=== PATIENT | female | born 2000 | race Caucasian/White ===

== ENCOUNTER 2020-02-10 17:43 | Emergency (ER) | payer MEDICAID ==
[~2020-02-10] VITALS: Ht 162.6 cm; Wt 78.0 kg
--- NOTE | 2020-02-10 17:45 | NUR ---
BIBA TAKEN TO BED 4
[2020-02-10 17:52] VITALS: BP 100/57
--- NOTE | 2020-02-10 17:55 | NUR ---
PT BIBA S/P SEIZURE. FAMILY WITNESSED SEIZURE AND REPORTED IT TONIC CLONIC LASTING 7 MINUTES. PER BRICKLAYER HELPER ORAL TRAUMA WAS NOTED BY FAMILY MEMBER, BUT NO ACTIVE BLEEDING OR LACERATION NOTICED UPON ASSESSMENT IN MOUTH OR ON LIPS. PATIENT STATES PAIN OF 0/10 AT THIS TIME; VSS; A&OX2; PATIENT POSITIONED FOR COMFORT; HOB ELEVATED; BEDRAILS UP X2; BED DOWN. ER MD MADE AWARE OF PT STATUS. SEIZURE PADS PLACED ON TWO SIDES OF THE BED. PT IS ON MONITOR AND RESTING IN THE BED.
--- NOTE | 2020-02-10 17:56 | NUR ---
PER EMS MOTHERS CONTACT INFORMATION IS , ROHAN BAPTISTE.
--- NOTE | 2020-02-10 18:15 | NUR ---
BLOOD SEEN ON PT'S UNDERWEAR AND PANTT. PATIENT URINATED VIA BEDPAN. URINE OUTPUT APPROXIMATELY 5ML WITH BLOODY COLOR. CHANGED A NEW UNDERWEAR WITH PAD ON PATIENT.
[2020-02-10 18:17] LABS: BASOPHILS % (AUTO) 0.3 % (0.0-2.0); EOSINOPHILS % (AUTO) 0.5 % (0.0-4.0); HEMOGLOBIN 13.6 g/dL (12.0-16.0); LYMPHOCYTES # (AUTO) 1.7 K/uL (2.5-16.5); LYMPHOCYTES % (AUTO) 20.4 % (20.5-51.1); MEAN CORPUSCULAR HEMOGLOBIN 29 pg (27-31); MEAN CORPUSCULAR HGB CONC 33 g/dL (33-37); MEAN CORPUSCULAR VOLUME 88.7 fL (80-94); MONOCYTES # (AUTO) 0.5 K/uL (0.8-1.0); MONOCYTES % (AUTO) 6.6 % (1.7-9.3); NEUTROPHILS # (AUTO) 5.9 K/uL (1.8-7.7); NEUTROPHILS % (AUTO) 72.2 % (42.2-75.2); PLATELET COUNT (AUTO) 271 K/uL (140-450); RED BLOOD CELL COUNT(AUTO) 4.74 MIL/uL (4.20-5.40); RED CELL DISTRIBUTION WIDTH 13.7 % (11.6-13.7); WHITE BLOOD COUNT (AUTO) 8.2 K/uL (4.8-10.8)
--- NOTE | 2020-02-10 18:36 | NUR ---
SPOKE WITH PATIENT'S GRANDMOTHER SHAMA ROSS IN PERSON AND GAVE HER PT'S UPDATES OF CONDITION. Addendum: 02/10/20 at 1838 by ANJU GRANDMOTHER REPORTED PT HAD LAST SEIZURE ONE MONTH AGO AND SHE IS NOT ABLE TO IDENTYFY ANY TRAIGGER FOR TODAY'S SEIZURE.
[2020-02-10 18:41] LABS: ALBUMIN 3.4 g/dL (3.4-5.0); ANION GAP 18.9 (8-16); CARBON DIOXIDE 21.7 mmol/L (21-32); POTASSIUM 3.6 mmol/L (3.5-5.1); TOTAL BILIRUBIN 0.4 mg/dL (0.0-1.0)
--- NOTE | 2020-02-10 18:58 | NUR ---
DR. CLARKE IS RE-EVALUATING PATIENT AT BEDSIDE.
--- NOTE | 2020-02-10 19:16 | NUR ---
Pt report given to RADHA Eldridge. Transfer of care at this time.
--- NOTE | 2020-02-10 19:16 | NUR ---
RECIVED REPORT FROM LYNN GARCIA. CONTINUATION OF CARE.
[2020-02-10 19:18] LABS: BILIRUBIN,URINE 1+ (NEGATIVE); BLOOD, URINE 3+ (NEGATIVE); LEUKOCYTE ESTERASE ,URINE 1+ (NEGATIVE); NITRITE, URINE NEGATIVE (NEGATIVE); UGLUCOSE NEGATIVE (NEGATIVE)
--- NOTE | 2020-02-10 19:18 | NUR ---
PT RESPONSIVE TO VERBAL STIMULI. PT AAO X4. RESPIRATIONS AR EEVEN AND UNALBORED. PADDED SIDE RAILS IN PLACE. PT ON MONITOR. VSS.
[2020-02-10 19:22] LABS: APPEARANCE,URINE HAZY (CLEAR); COLOR,URINE BLOODY (YELLOW)
--- NOTE | 2020-02-10 20:06 | NUR ---
PT ABLE TO AMBULATE TO RESTROOM WITH STEADY GAIT. PT ASSITIED IN WALKING TO RESTROOM. PT ORIENTED TO CALL LIGHT IN CASE OF NEEDED ASSISTANCE.
--- NOTE | 2020-02-10 20:59 | NUR ---
PT MOTHER CALLED FOR AN UPDATE. PT GAVE PERMISSON TO GIVE AN UPDATE ON HER CONDITION. MOTHER STATED SHE WILL FOLLOW UP AND CALL LATER.
--- NOTE | 2020-02-10 21:36 | NUR ---
Note tylor in EDM - 02/10/20 at 2202 by [facility] Patient discharged with v/s stable. Written and verbal after care instructions given and explained. Patient verbalized understanding. Ambulatory with steady gait. All questions addressed prior to discharge. Advised to follow up with PMD. PTS MOM WILL BE PICKING HER UP.
[2020-02-10] MEDS ORDERED: LORazepam 2 MG/ML VIAL ONE (21:57)
[2020-02-10] MEDS ORDERED: LORazepam 2 MG/ML VIAL IVP ONE (22:00)
--- NOTE | 2020-02-10 22:03 | NUR ---
UPON DISCHARGE PT EYES WERE CONVULSING. DR. ARAYA MADE AWARE AND TO BE RETURNED TO BED 4 FOR FURTHER ASSESSMENT, AND MONITORING.
--- NOTE | 2020-02-10 22:05 | NUR ---
IV PLACED IN L AC 20G BY MAR GARCIA. IV SITE IS PATENT, NO SWELLING OR C/O PAIN AT SITE.
--- NOTE | 2020-02-10 22:06 | NUR ---
ATIVAN 1MG GIVEN IVP. IV SITE IS PATENT. PT TOLERATED ON MONITOR. VSS.
[2020-02-10] MEDS ORDERED: DEXT 5% / NACL 0.45% 1,000 ML IV SCH (22:41)
--- NOTE | 2020-02-10 22:42 | NUR ---
MOTHER CALLED AND NOTIFIED ABOUT PT PENDING ADMISSION.
[2020-02-10] MEDS ORDERED: LORazepam 2 MG/ML VIAL IM/IVP PRN (22:45)
[2020-02-10] MEDS ORDERED: ONDANSETRON 4 MG/2 ML VIAL IM/IVP PRN (22:45)
[2020-02-10] MEDS ORDERED: ZOLPIDEM 5 MG TAB PO PRN (22:45)
[2020-02-10] MEDS ORDERED: ACETAMINOPHEN 325 MG TAB PO PRN (22:45)
[2020-02-10] MEDS ORDERED: MORPHINE SULFATE 2 MG/ML SYR IVP PRN (22:45)
[2020-02-10] MEDS ORDERED: DOCUSATE SODIUM 100 MG GELCAP PO PRN (22:45)
[2020-02-10] MEDS ORDERED: HYDROcodone/APAP 5/325 MG 1 TAB TAB PO PRN (22:45)
--- NOTE | 2020-02-10 22:55 | NUR ---
XRAY AT BEDSIDE.
[2020-02-10] MEDS ORDERED: [UNRECOGNIZED DRUG - CODE] PO (23:11)
--- NOTE | 2020-02-10 23:18 | NUR ---
PER ERMD PT STABLE ENOUGH TO BE D/C HOME. PT AAOX4. VSS. PT ABLE TO AMBULATE WITH STEADY GAIT WITHOUT ASSISTANCE. NO SIEZURE ACTIVITY NOTED.
--- NOTE | 2020-02-10 23:24 | NUR ---
PT MOTHER CALLED TO COOLING ROOM ATTENDANT PT.
--- NOTE | 2020-02-10 23:24 | NUR ---
IV removed, catheter intact and site benign. Applied folded 4x4 gauze and tape to stop bleeding.
[2020-02-10 23:25] VITALS: BP 106/73
--- NOTE | 2020-02-10 23:25 | NUR ---
Patient discharged with v/s stable. Written and verbal after care instructions given and explained. Patient verbalized understanding. Ambulatory with steady gait. All questions addressed prior to discharge. Advised to follow up with PMD.
[2020-02-11 00:24] LABS: PROTHROMBIN TIME 9.9 secs (10.8-13.4)
[2020-02-11 01:24] LABS: AMYLASE 56 U/L (25-115); LIPASE 45 U/L (73-393); MAGNESIUM 1.6 mg/dL (1.8-2.4); PHOSPHORUS 2.8 mg/dL (2.5-4.9)
[2020-02-12 08:06] LABS: T4 (THYROXINE) 7.1 ug/dL (4.5-12.0)
== END 2020-02-10 23:25 | disposition home or self-care (01) ==
LOC: MED 17:43
DX: R56.9 Unspecified convulsions (principal)
CPT/HCPCS: 36415; 71045; 80053; 81001; 81025; 82140; 82150; 82550; 82553; 83036; 83690; 83735; 83880; 84100; 84134; 84436; 84484; 85025; 85610; 85730; 87086; 96374; 99284; G0482; J2060; 84443

== ENCOUNTER 2020-03-01 14:07 | Inpatient (IN) | payer MEDICAID, SELFPAY ==
[~2020-03-01] VITALS: Ht 160 cm; Wt 76.2 kg
[~2020-03-01 14:07] MED LIST: [UNRECOGNIZED DRUG - CODE] PO
[2020-03-01 14:12] VITALS: BP 117/75
[2020-03-01] MEDS ORDERED: ACETAMINOPHEN EXTRA STRENGTH 500 MG TAB PO ONE (14:15)
--- NOTE | 2020-03-01 14:25 | NUR ---
19/F C/O FEVER AND DIZZINESS X THIS AM. DENIES N/V. STATES SORE THROAT. DENIES COUGH AND SOB. DENIES SICK CONTACTS BUT STATES HAS BEEN OUTSIDE/NOT STAYING AT HOME. STATES HIGH PAIN THAT STARTED A FEW HOURS AGO. PT APPEARS FATIGUED. AMBULATED FROM TRIAGE TO BED 09. TEMP 102.1 HR 137 AT TRIAGE. PMH- SEIZURE
--- NOTE | 2020-03-01 14:30 | NUR ---
ORDERED TYLENOL ADMINISTERED. PT DENIES USE OF ANTIPYRETIC TODAY PRIOR TO ER VISIT.
--- NOTE | 2020-03-01 14:36 | NUR ---
DR. PUCKETT EVALUATING PT AT BEDSIDE
[2020-03-01] MEDS ORDERED: NACL 0.9% 1,000 ML IV ONE ×3 (14:40→16:10)
--- NOTE | 2020-03-01 14:51 | NUR ---
ASSISTED PT TO BEDSIDE COMMODE TO PROVIDE URINE SAMPLE
--- NOTE | 2020-03-01 15:09 | NUR ---
BLOOD AND URINE SAMPLES HANDED TO TRAIN CLERK
--- NOTE | 2020-03-01 15:14 | NUR ---
FLU AND COVID SWABS OBTAINED VIA FRUIT OR NUT GROWER
--- NOTE | 2020-03-01 15:23 | NUR ---
FLU AND COVID SWABS HANDED TO LIFE SKILLS INSTRUCTOR.
[2020-03-01 15:33] LABS: BASOPHILS % (AUTO) 0.2 % (0.0-2.0); EOSINOPHILS % (AUTO) 0.1 % (0.0-4.0); HEMATOCRIT 40.9 % (36-48); HEMOGLOBIN 13.5 g/dL (12.0-16.0); LYMPHOCYTES # (AUTO) 1.1 K/uL (2.5-16.5); MEAN CORPUSCULAR HEMOGLOBIN 29 pg (27-31); MEAN CORPUSCULAR HGB CONC 33 g/dL (33-37); MEAN CORPUSCULAR VOLUME 88.5 fL (80-94); MONOCYTES % (AUTO) 7.5 % (1.7-9.3); NEUTROPHILS # (AUTO) 11.6 K/uL (1.8-7.7); NEUTROPHILS % (AUTO) 84.2 % (42.2-75.2); PLATELET COUNT (AUTO) 224 K/uL (140-450); RED BLOOD CELL COUNT(AUTO) 4.63 MIL/uL (4.20-5.40); RED CELL DISTRIBUTION WIDTH 14.5 % (11.6-13.7); WHITE BLOOD COUNT (AUTO) 13.8 K/uL (4.8-10.8)
[2020-03-01 15:34] LABS: APPEARANCE,URINE CLEAR (CLEAR); BILIRUBIN,URINE NEGATIVE (NEGATIVE); BLOOD, URINE NEGATIVE (NEGATIVE); COLOR,URINE YELLOW (YELLOW); LEUKOCYTE ESTERASE ,URINE NEGATIVE (NEGATIVE); NITRITE, URINE NEGATIVE (NEGATIVE); PH,URINE 8.5 (5.0-9.0); UGLUCOSE NEGATIVE (NEGATIVE)
--- NOTE | 2020-03-01 15:46 | NUR ---
NOTIFIED DR. PUCKETT OF PT BP 90/40 AND RECHECKED WITH 82/40 RESULT. PT FATIGUED BUT REMAINS AOX4.
[2020-03-01 15:48] LABS: ALBUMIN 3.7 g/dL (3.4-5.0); ANION GAP 15.1 (8-16); CARBON DIOXIDE 24.4 mmol/L (21-32); CREATININE 0.8 mg/dL (0.6-1.3); POTASSIUM 3.5 mmol/L (3.5-5.1); TOTAL BILIRUBIN 0.8 mg/dL (0.0-1.0)
[2020-03-01] MEDS ORDERED: OSELTAMIVIR PHOSPHATE 75 MG CAP PO ONE (15:50)
[2020-03-01 16:04] LABS: PROTHROMBIN TIME 9.8 secs (10.8-13.4)
--- NOTE | 2020-03-01 16:33 | NUR ---
BP IMPROVED TO 95/50, DR. PUCKETT IS AWARE.
--- NOTE | 2020-03-01 17:04 | NUR ---
PT AMB TO BEDSIDE COMMODE WITHOUT ASSISTANCE. STATES FEELS "LIGHTHEADED" BUT IMPROVED SINCE TIME OF TRIAGE.
[2020-03-01] MEDS ORDERED: ACETAMINOPHEN 325 MG TAB PO PRN (17:30)
[2020-03-01] MEDS ORDERED: ONDANSETRON 4 MG/2 ML VIAL IM/IVP PRN (17:30)
[2020-03-01] MEDS ORDERED: HYDROcodone/APAP 5/325 MG 1 TAB TAB PO PRN (17:30)
[2020-03-01] MEDS ORDERED: LORazepam 2 MG/ML VIAL IM/IVP PRN ×2 (17:30→19:55)
[2020-03-01] MEDS ORDERED: DOCUSATE SODIUM 100 MG GELCAP PO PRN (17:30)
[2020-03-01 18:04] LABS: AMYLASE 59 U/L (25-115); FREE T4 (FREE THYROXINE) 1.02 ng/dL (0.76-1.46); HDL CHOLESTEROL 67 mg/dL (40-60); LDL (CALC) 62 mg/dL (60-100); LIPASE 53 U/L (73-393); MAGNESIUM 1.5 mg/dL (1.8-2.4); PHOSPHORUS 2.8 mg/dL (2.5-4.9); TRIGLYCERIDES 36 mg/dL (30-150)
[2020-03-01 18:04] LABS: BARBITURATE, URINE NEGATIVE ng/ml (NEG <=200); BENZODIAZEPINE, URINE NEGATIVE ng/mL (NEG <=200); CANNABINOID, URINE NEGATIVE ng/mL (NEG <=50); COCAINE, URINE NEGATIVE ng/mL (NEG <=300); OPIATE, URINE NEGATIVE ng/mL (NEG <=2000); PHENCYCLIDINE SCREEN,URINE NEGATIVE ng/mL (NEG <=25)
[2020-03-01 18:26] LABS: THYROID STIMULATING HORMONE 1.31 uIU/mL (0.34-3.74)
--- NOTE | 2020-03-01 18:50 | NUR ---
Patient will be admitted to care of DR. HOANG. Admited to TELE. Will go to room 127A. Belongings list completed. Report to NEGRA GARCIA.
--- NOTE | 2020-03-01 18:50 | NUR ---
RECEIVED REPORT FROM ER NURSE FOR CONTINUITY OF CARE, PT IS STABLE, AAXO4, PT IS NOT SPEAKING MUCH HER THROAT HURTS, PT HAS RIGHT AC 18 SALINE LOCK, LEFT AC 20G INFUSING NORMAL SALINE AT 110 ML/HR, INTRODUCE PT TO THE ROOM, EDUCATED PT ON USE OF PHONE AND CALL LIGHT, PT VERBALIZED UNDERSTANDING, SEIZURE PRECAUTIONS ARE IN PLACE, MRSA SWAB TAKEN, CALL LIGHT WITHIN REACH, ALL NEEDS MET AT THIS TIME.
[2020-03-01 19:00] VITALS: BP 111/64
[2020-03-01] MEDS: NACL 0.9% 1,000 ML IV SCH (19:09)
--- NOTE | 2020-03-01 19:20 | NUR ---
GAVE REPORT TO NIGHT FOR CONTINUITY OF CARE, PT STABLE.
--- NOTE | 2020-03-01 20:00 | NUR ---
RECEIVED BEDSIDE REPORT FROM AM SHIFT RN FOR PT'S CONTINUITY OF CARE. PT IS AAOX4, AMBULATORY, ON ISOLATION FOR R/O COVID19, ON REMOTE CONTROL MIRROR INSTALLER, PT ON ROOM AIR, HAS RIGHT AC 18G SALINE LOCK AND LEFT AC 20G INFUSING WITH NS AT 110ML/HR, SKIN IS INTACT, PT DENIES ANY PAIN AT THIS TIME, STATES TOLERABLE SORE THROAT, REQUESTED AND PROVIDED WITH WARM WATER. ADMISSION ASSESSMENT AND QUESTIONNAIRE DONE, EXPLAINED TO PT THE SR. SOCIAL MEDIA & MOBILE MANAGER ROUTINE, PT VERBALIZED UNDERSTANDING. SAFETY MEASURES AND ISOLATION PRECAUTION IN PLACE, AND CALL LIGHT IS WITHIN REACH. WILL MONITOR PT THROUGHOUT SHIFT.
[2020-03-01] MEDS ORDERED: ETHOSUXIMIDE PO SCH (21:00)
[2020-03-01] MEDS ORDERED: MAG SULF 2000 MG/WATER PREMIX 50 ML IV SCH (21:10)
[2020-03-01] MEDS ORDERED: cefTRIAXone 1,000 MG VIAL ONE (22:22)
--- NOTE | 2020-03-01 22:30 | NUR ---
ADMINISTERED SCHEDULED IV ABX ORDERED. PT EDUCATION GIVEN. PT STATED HAS HX: SEIZURES, TAKES MEDICATION 2X/DAY, MD AWARE AWAITING FOR PHARMACY TO DISPENSE. PER MD, WE COULD ADMIN HOME MED FOR TONIGHT IF SOMEONE COULD DROP OFF HOME MED. PT NOTIFIED, PT'S MOTHER TO DROP OFF MEDICATION. PT TOLERATED ABX WELL, NO REACTION NOTED OR OBSERVED. WILL CONTINUE TO MONITOR.
[2020-03-02] VITALS: BP 104/52
--- NOTE | 2020-03-02 00:15 | NUR ---
PT'S MOTHER DROPPED OFF SEIZURE MEDICATION, ADMINISTERED 250MG (1 CAPSULE) DIRECTED, MD AWARE. PT DENIES ANY PAIN OR DISCOMFORT. PT AFEBRILE, NO RESPIRATORY DISTRESS NOTED, ST ON TELE. WILL CONTINUE TO MONITOR PT.
--- NOTE | 2020-03-02 02:15 | NUR ---
PT ASLEEP WITH NO SIGNS OF DISTRESS. WILL CONTINUE TO MONITOR.
[2020-03-02 04:00] VITALS: BP 110/55
--- NOTE | 2020-03-02 04:30 | NUR ---
VS CHECKED AND CHARTED. PT C/O SORE THROAT, REQUESTED FOR MEDICATION. NOTIFIED MD, WILL WAIT FOR FURTHER ORDERS, PT NOTIFIED. OBTAINED PT'S SIGNATURE FOR SEIZURE HOME MEDICATION PHARMACY BAG, EXPLAINED TO PT THAT HOME MED WILL BE KEPT WITH PHARMACY UNTIL DISCHARGE DATE, PHARMACY TO DISPENSE SEIZURE MEDICATION DURING HOSPITALIZATION. PT VERBALIZED UNDERSTANDING. PT MADE COMFORTABLE, WILL MEDICATE FOR SORE THROAT ONCE AVAILABLE.
[2020-03-02] MEDS: BENZOCAINE/MENTHOL 1 LOZ MM PRN ×3 (06:03→22:26)
--- NOTE | 2020-03-02 06:03 | NUR ---
ADMINISTERED PO LOZENGE ORDERED. PT TEACHING GIVEN, PT VERBALIZED UNDERSTANDING. DENIES ANY OTHER PAIN OR DISCOMFORT. WILL ENDORSE PT TO AM SHIFT RN FOR PT'S CONTINUITY OF CARE.
[2020-03-02 06:18] LABS: BASOPHILS % (AUTO) 0.1 % (0.0-2.0); EOSINOPHILS % (AUTO) 0.1 % (0.0-4.0); HEMATOCRIT 37.4 % (36-48); HEMOGLOBIN 12.2 g/dL (12.0-16.0); LYMPHOCYTES # (AUTO) 1.3 K/uL (2.5-16.5); LYMPHOCYTES % (AUTO) 10.2 % (20.5-51.1); MEAN CORPUSCULAR HEMOGLOBIN 29 pg (27-31); MEAN CORPUSCULAR HGB CONC 33 g/dL (33-37); MEAN CORPUSCULAR VOLUME 88.5 fL (80-94); MONOCYTES % (AUTO) 7.6 % (1.7-9.3); NEUTROPHILS # (AUTO) 10.7 K/uL (1.8-7.7); PLATELET COUNT (AUTO) 189 K/uL (140-450); RED BLOOD CELL COUNT(AUTO) 4.22 MIL/uL (4.20-5.40); RED CELL DISTRIBUTION WIDTH 14.7 % (11.6-13.7); WHITE BLOOD COUNT (AUTO) 13.1 K/uL (4.8-10.8)
[2020-03-02] MEDS: NACL 0.9% 1,000 ML IV SCH ×2 (06:24→22:41)
--- NOTE | 2020-03-02 07:10 | NUR ---
RECEIVED PATIENT FROM TRADE MARK EXAMINER NURSE FOR CONTINUITY OF CARE. PATIENT IS ASLEEP AT THIS TIME. NO SIGNS OF DISTRESS NOTED. RESPIRATIONS EVEN AND UNLABORED, ROOM AIR. VISIBLE CHEST RISE AND FALL NOTED. ON TELE MONITORING. SKIN WARM, DRY, AND INTACT. IV ON L AC G20, RUNNING NS AT 70 ML/HR. RIGHT AC G18, SALINE LOCK. ABDOMEN SOFT AND NONTENDER. LAST BM WAS February. PATIENT IS CONTINENT. ON DROPLET AND CONTACT PRECAUTIONS. SZ PRECAUTION IN PLACE. PATIENT IS AMBULATORY. BED IN LOW POSITION. CALL LIGHT IS WITHIN REACH. WILL CONTINUE TO MONITOR.
--- NOTE | 2020-03-02 07:52 | NUR ---
PATIENT HAS BEEN SCREENED AND CATEGORIZED LOW NUTRITION RISK. PATIENT WILL BE SEEN WITHIN 7 DAYS OF ADMISSION. 03/08/[address]
[2020-03-02 08:00] VITALS: BP 109/50
[2020-03-02] MEDS: AZITHROMYCIN 250 MG TAB PO SCH (08:19)
[2020-03-02] MEDS: ZINC SULF 220 MG CAP PO SCH (08:19)
[2020-03-02] MEDS: ASCORBIC ACID 500 MG TAB PO SCH (08:20)
[2020-03-02] MEDS: OSELTAMIVIR PHOSPHATE 75 MG CAP PO SCH ×2 (08:21→22:25)
[2020-03-02] MEDS: VITAMIN D 400 IU TAB PO SCH (08:21)
--- NOTE | 2020-03-02 08:21 | NUR ---
GIVEN MORNING MEDICATIONS SCHEDULED. EXPLAINED MEDICATIONS. PATIENT VERBALIZED UNDERSTANDING. PATIENT TOLERATED WELL. WILL CONTINUE TO MONITOR.
[2020-03-02] MEDS ORDERED: ENOXAPARIN 40 MG/0.4 ML SYR SUBQ SCH (09:00)
--- NOTE | 2020-03-02 10:26 | NUR ---
PT IS LYING IN BED. NO SIGN OF DISTRESS NOTED. PT IS WATCHING TV. BED IN LOWEST LOCKED POSITION. WILL CONTINUE TO MONITOR.
--- NOTE | 2020-03-02 10:44 | NUR ---
CALLED PATIENT'S MOTHER X2 TO VERIFY DOSAGE OF ZARONTIN, NO ANSWER. WILL TRY TO CALL BACK AGAIN LATER
--- NOTE | 2020-03-02 10:48 | NUR ---
PER PATIENT, SHE IS ONLY TAKING ONE CAPSULE OF ETHOSUZIMIDE TID. NOTIFIED DR. JO REGARDING PATIENT'S ETHOSUZIMIDE DOSAGE OF 250MG TID. DR STATED SHE WILL CHANGE IT. PHARMACY AWARE.
[2020-03-02 10:57] LABS: ANION GAP 15.4 (8-16); CREATININE 0.8 mg/dL (0.6-1.3); POTASSIUM 3.4 mmol/L (3.5-5.1)
--- NOTE | 2020-03-02 11:00 | NUR ---
PER PATIENT'S MOTHER, ETHOSUZIMIDE IS TAKEN ONE 250 MG IN THE MORNING, TWO CAPSULES AT NIGHT, 500 MG PO. PHARMACY IS AWARE
[2020-03-02 11:02] LABS: MAGNESIUM 1.6 mg/dL (1.8-2.4); PHOSPHORUS 3.1 mg/dL (2.5-4.9)
[2020-03-02 12:00] VITALS: BP 109/86
--- NOTE | 2020-03-02 12:03 | NUR ---
GIVEN CEPHACOL FOR SORE THROAT PO. VITAL CHECKED. ALL WITHIN THE NORMAL LIMITS. AFEBRILE. DENIES PAIN OTHER THAN SORE THROAT. BED IN LOW POSITION. CALL LIGHT IS WITHIN REACH. WILL CONTINUE TO MONITOR.
[2020-03-02] MEDS ORDERED: MAG SULF 2000 MG/WATER PREMIX 100 ML IV SCH (14:15)
--- NOTE | 2020-03-02 14:41 | NUR ---
MAG-RIDER GIVEN VIA IVF FOR MAG LEVEL OF 1.6. KDUR PO FOR POTASSIUM LEVEL OF 3.4. EXPLAINED MEDICATIONS. PATIENT VERBALIZED UNDERSTANDING. BED IN LOW POSITION CALL LIGHT IS WITHIN REACH. WILL CONTINUE TO MONITOR.
--- NOTE | 2020-03-02 14:46 | NUR ---
PATIENT STATED THAT HER IV MAG-RIDER IS HURTING HER. LOWERED MAG RIDER RATE TO 15 ML/HR. TOLD PATIENT TO CALL ME IF IT IS STILL HURTING. PATIENT STATED UNDERSTANDING. DR. JO AWARE.
[2020-03-02] MEDS ORDERED: POTASSIUM CHLORIDE 10 MEQ TABER PO SCH (15:00)
[2020-03-02 16:00] VITALS: BP 109/57
--- NOTE | 2020-03-02 16:37 | NUR ---
PATIENT IS ON THE PHONE TEXTING. NO SIGNS OF DISTRESS NOTED. BED IN LOW POSITION CALL LIGHT IS WITHIN REACH. WILL CONTINUE TO MONITOR.
--- NOTE | 2020-03-02 18:16 | NUR ---
PATIENT IS EATING DINNER AT THIS TIME. NO SIGNS OF DISTRESS NOTED. WILL CONTINUE TO MONITOR.
--- NOTE | 2020-03-02 19:10 | NUR ---
ENDORSE PT TO THE SNOW RANGER NURSE FOR CONTINUITY OF CARE. PT IS IN STABLE CONDITION.
--- NOTE | 2020-03-02 19:15 | NUR ---
RECEIVED REPORT FORM SCOTT RN DAYSHIFT NURSE AT BEDSIDE FOR CONTINUITY OF CARE, PT IN STABLE CONDITION.
[2020-03-02 20:00] VITALS: BP 120/60
--- NOTE | 2020-03-02 20:00 | NUR ---
PT IN BED V/S FOLLOWS: T 98.1 P 71 R 20 B/P 118/62 02 99% ON ROOM AIR. PT IS AOX4 IV SITE INTACT AND ASYMPTOMATIC RUNNING NORMAL SALINE AT 70 MLS/HR. PT DENIES PAIN AND ALL UNIVERSAL FALLS PRECAUTIONS IN PLACE.
[2020-03-02] MEDS ORDERED: COMMUNICATION ORDER MC SCH (21:00)
[2020-03-02] MEDS ORDERED: ETHOSUXIMIDE 250 MG PO SCH (21:00)
--- NOTE | 2020-03-02 21:00 | NUR ---
PT GIVEN DUE MEDS OF IV ABT ROCEPHIN, ETHOSUXIMIDE AND TAMIFLU. NEW BAG OF NORMAL SALINE PROVIDED. PT IV SITE INTACT AND ASYMPTOMATIC. EDUCATION REGARDING MEDICATION PROVIDED AT BEDSIDE FOR CONTINUITY OF CARE, PT IN STABLE CONDITION. ALL UNIVERSAL FALLS PRECAUTIONS IN PLACE.
--- NOTE | 2020-03-02 22:30 | NUR ---
PT C/O SORE THROAT AND WAS GIVEN PRN CAECAL LOZENGES FOR RELIEF.
[2020-03-03] VITALS: BP 130/80
--- NOTE | 2020-03-03 | NUR ---
PT IN BED RESTING WITH EYES CLOSED BUT AROUSABLE TO NAME AND LIGHT TOUCH, V/S IN NORMAL LIMITS PT DENIES LEATHA AND RESPIRATIONS EVEN AND UNLABORED ON ROOM AIR. ALL UNIVERSAL FALLS PRECAUTIONS IN PLACE.
--- NOTE | 2020-03-03 02:00 | NUR ---
REPORT GIVEN TO CHARGE NURSE DUE TO CHANGE OF ASSIGNMENT. PT SLEEPING IN BED UNIVERSAL PRECAUTIONS IN PLACE AND PT IN STABLE CONDITION.
--- NOTE | 2020-03-03 02:11 | NUR ---
RECEIVED PT LYING ON BED, AWAKE AND USING HER CELLPHONE, NO SIGNS OF SOB NOTED, ON ROOM AIR WITH 96% SAT, MAINTAIN ON DROPLET ISOLATION FOR INFLUENZA A POSITIVE, IVF INFUSING WELL, CALL LIGHT WITHIN REACH, MONITORED CLOSELY.
--- NOTE | 2020-03-03 03:40 | NUR ---
ROUNDS MADE, SEEN PT SLEEPING, NO SIGNS OF DISTRESS, SAT-97% ON ROOM AIR, HR-80 BPM, IVF INFUSING WELL, MONITORED CLOSELY.
[2020-03-03 05:46] LABS: BASOPHILS # (AUTO) 0.1 K/uL (0.00-0.22); BASOPHILS % (AUTO) 0.6 % (0.0-2.0); EOSINOPHILS # (AUTO) 0.1 K/uL (0-0.4); EOSINOPHILS % (AUTO) 1.2 % (0.0-4.0); HEMATOCRIT 39.1 % (36-48); HEMOGLOBIN 12.8 g/dL (12.0-16.0); LYMPHOCYTES # (AUTO) 1.8 K/uL (2.5-16.5); LYMPHOCYTES % (AUTO) 19.6 % (20.5-51.1); MEAN CORPUSCULAR HEMOGLOBIN 29 pg (27-31); MEAN CORPUSCULAR HGB CONC 33 g/dL (33-37); MEAN CORPUSCULAR VOLUME 88.6 fL (80-94); MONOCYTES # (AUTO) 0.9 K/uL (0.8-1.0); MONOCYTES % (AUTO) 10.3 % (1.7-9.3); NEUTROPHILS # (AUTO) 6.2 K/uL (1.8-7.7); NEUTROPHILS % (AUTO) 68.3 % (42.2-75.2); PLATELET COUNT (AUTO) 194 K/uL (140-450); RED BLOOD CELL COUNT(AUTO) 4.41 MIL/uL (4.20-5.40); RED CELL DISTRIBUTION WIDTH 14.8 % (11.6-13.7); WHITE BLOOD COUNT (AUTO) 9.1 K/uL (4.8-10.8)
[2020-03-03 06:09] LABS: ANION GAP 12.7 (8-16); CARBON DIOXIDE 23.3 mmol/L (21-32); CREATININE 0.7 mg/dL (0.6-1.3)
--- NOTE | 2020-03-03 06:14 | NUR ---
ROUNDS MADE, SEEN PT AWAKE, NO NEEDS AT THIS TIME, IVF INFUSING WELL, NO SEIZURE EPISODE THE WHOLE SHIFT, MONITORED CLOSELY.
[2020-03-03 06:20] LABS: MAGNESIUM 1.9 mg/dL (1.8-2.4); PHOSPHORUS 3.4 mg/dL (2.5-4.9)
--- NOTE | 2020-03-03 07:10 | NUR ---
PT SLEEPING, NO SIGNS OF DISTRESS, 97% SAT ON ROOM AIR, REPORT GIVEN TO RADHA SEN FOR CONTINUITY OF CARE.
--- NOTE | 2020-03-03 07:11 | NUR ---
RECEIVED REPORT FROM COST ESTIMATING ENGINEER NURSE EBEN FOR CONTINUITY OF CARE. PATIENT IN STABLE CONDITION. RESPIRATIONS EVEN AND UNLABORED, ROOM AIR. IV INTACT AND PATENT. SAFETY MEASURES IN PLACE. BED IN LOW POSITION, BED LOCKED. CALL LIGHT AT BEDSIDE. WILL CONTINUE TO MONITOR.
[2020-03-03 08:00] VITALS: BP 102/67
[2020-03-03] MEDS ORDERED: ETHOSUXIMIDE 250 MG PO SCH (09:00)
[2020-03-03] MEDS: VITAMIN D 400 IU TAB PO SCH (09:02)
[2020-03-03] MEDS: OSELTAMIVIR PHOSPHATE 75 MG CAP PO SCH (09:02)
[2020-03-03] MEDS: ZINC SULF 220 MG CAP PO SCH (09:02)
--- NOTE | 2020-03-03 09:02 | NUR ---
GAVE ORDERED DUE MEDICATIONS AT THIS TIME. PATIENT TOLERATED WELL. BED IN LOW POSITION. CALL LIGHT AT BEDSIDE. WILL CONTINUE TO MONITOR.
[2020-03-03] MEDS: AZITHROMYCIN 250 MG TAB PO SCH (09:03)
[2020-03-03] MEDS: ASCORBIC ACID 500 MG TAB PO SCH (09:03)
--- NOTE | 2020-03-03 10:12 | NUR ---
PATIENT MOTHER CALLED ASKING FOR UPDATE ON PATIENT. PATIENT GAVE VERBAL CONSENT TO GIVE INFORMATION TO MOTHER. ALL QUESTIONS ANSWERED AT THIS TIME.
[2020-03-03] MEDS: NACL 0.9% 1,000 ML IV SCH (11:00)
--- NOTE | 2020-03-03 11:33 | NUR ---
PATIENT WATCHING TV AT THIS TIME. RESPIRATIONS EVEN AND UNLABORED, ROOM AIR. BED IN LOW POSITION. CALL LIGHT AT BEDSIDE. WILL CONTINUE TO MONITOR.
[2020-03-03] MEDS ORDERED: TAM75 PO (11:34)
--- NOTE | 2020-03-03 13:30 | NUR ---
GAVE DISCHARGE INSTRUCTIONS AND INFORMED PATIENT WHERE TO AUTOMOTIVE HARDWARE ENGINEER MEDICATIONS. PATIENT VERBALIZED UNDERSTANDING OF INSTRUCTIONS. IV REMOVED, LUMEN INTACT. ID BAND REMOVED. PATIENT WAS WHEELED TO LOBBY IN STABLE CONDITION. FAMILY (MOTHER) WAITING WITH VEHICLE.
--- NOTE | 2020-03-03 14:21 | NUR ---
DISCHARGE PLANNING: THIS IS A 19 Y/O FEMALE PATIENT FROM HOME, WHO CAME IN DUE TO GENERAL MALAISE AND SORE THROAT. PAST MEDICAL HISTORY INCLUDE SEIZURE DISORDER. CURRENT LABS WNL. NEGATIVE FOR COVID. INF A POSITIVE. ON TAMIFLU AND ROCEPHIN. FOR DC BACK TO HOME TODAY.
== END 2020-03-03 13:30 | disposition home or self-care (01) | DRG 113 ==
LOC: MED 14:07 → EEVIPCON 14:07 → MMU 17:28
PROVIDERS: ADMIT General Practice; ATTEND General Practice
DX: J10.1 Influenza due to other identified influenza virus with other respiratory manifestations (principal); E83.42 Hypomagnesemia; R65.10 Systemic inflammatory response syndrome (SIRS) of non-infectious origin without acute organ dysfunction; G40.909 Epilepsy, unspecified, not intractable, without status epilepticus; E87.6 Hypokalemia; Z20.828 Contact with and (suspected) exposure to other viral communicable diseases; Z03.818 Encounter for observation for suspected exposure to other biological agents ruled out
CPT/HCPCS: 36415; 71045; 80048; 80053; 80305; 81003; 81025; 82140; 82150; 83036; 83605; 83615; 83690; 83735; 83880; 84100; 84439; 84443; 84484; 85025; 85379; 85610; 85651; 85730; 86140; 87040; 87081; 87086; 87804; 93005; 96360; 99291; G0482; J0696; J3475; J7030; J7060; Q0092; U0003-CS

== ENCOUNTER 2020-05-28 20:55 | Emergency (ER) | payer MEDICAID, SELFPAY ==
[~2020-05-28] VITALS: Ht 160 cm; Wt 77.1 kg
[~2020-05-28 20:55] MED LIST changes: +TAM75 PO
[2020-05-28 21:01] VITALS: BP 125/72
--- NOTE | 2020-05-28 21:05 | NUR ---
PT TAKEN TO BED 2 WITH STEADY GAIT.
--- NOTE | 2020-05-28 21:17 | NUR ---
PT COMING IN WITH C/O OF LEFT SIDED CHEST PAIN WHCH RADIATES INTO THE RIGHT SIDE, ON GOING FOR 1 MONTH. NO PERCIPATING FACTORS, HAPPENS DURING REST WELL ACTIVIY. STATES PAIN IS SHARP AND TIGHT. DOES NOT RADIATE INTO ARM, SHOULDER, NECK, OR BACK. DENIES N/T. DENIES SOB, NO COUGH, AND TESTED NEGATIVE FOR COVID. DENIES HX OF ANXIETY. BED IN LOWEST POSITION AND SIDERAIL UP X 1. NKA HX - SEIZURES
--- NOTE | 2020-05-28 21:25 | NUR ---
SEIZURE PADS PLACED BEDSIDE RAILINGS
--- NOTE | 2020-05-28 21:32 | NUR ---
MD HONEYCUTT AT BEDSIDE
[2020-05-28 21:41] VITALS: BP 125/75
== END 2020-05-28 21:41 | disposition home or self-care (01) ==
LOC: MED 20:55
DX: R07.9 Chest pain, unspecified (principal); R56.9 Unspecified convulsions; Z79.899 Other long term (current) drug therapy
CPT/HCPCS: 93005; 99283

== ENCOUNTER 2020-07-15 09:58 | Emergency (ER) | payer MEDICAID ==
[~2020-07-15] VITALS: Ht 165.1 cm; Wt 81.2 kg
[2020-07-15 10:14] VITALS: BP 113/69
--- NOTE | 2020-07-15 10:15 | NUR ---
PATIENT AMBULATED TO ER BED 11
--- NOTE | 2020-07-15 10:24 | NUR ---
20/F c/o left chest pain radiating to back and associated SOB upon waking up today. Lasted about 1 hour. Pt states this has been ongoing issues x 1 year. Denies cough, n/v, diaphoresis, dizziness. Pt states the chest pain seems to be associated with anxiety. Denies SOB or CP at this time. Appears NAD. med hx: seizure (last sz 4 months ago)
[2020-07-15 11:06] VITALS: BP 113/69
== END 2020-07-15 11:07 | disposition home or self-care (01) ==
LOC: MED 09:58
DX: F41.9 Anxiety disorder, unspecified (principal); R07.9 Chest pain, unspecified; Z79.899 Other long term (current) drug therapy
CPT/HCPCS: 93005; 99283

== ENCOUNTER 2020-07-16 19:20 | Emergency (ER) | payer MEDICAID ==
[~2020-07-16] VITALS: Ht 165.1 cm; Wt 80.7 kg
[2020-07-16 19:26] VITALS: BP 135/73
--- NOTE | 2020-07-16 19:35 | NUR ---
20 y/o female presented to ED c/o laceration to right hand after washing dishes . bleeding is controlled . Pt denies numbness and tingling in hands. cap refil < 3 sec . pt resting in bed, locked and in lowest position, HOB elevated, side rail x1. ERMD made aware of pt status. pmh: seizures NKA
--- NOTE | 2020-07-16 19:40 | NUR ---
PT TAKEN TO BED 6
[2020-07-16] MEDS ORDERED: LIDOCAINE 2% 1000 MG/50 ML VIAL INJ ONE (19:50)
--- NOTE | 2020-07-16 19:58 | NUR ---
YOANA HUERTA WITH PT
[2020-07-16] MEDS ORDERED: BACITRACIN OINT 500 UNITS/GM PKT TP ONE (20:30)
[2020-07-16 21:07] VITALS: BP 135/73
== END 2020-07-16 21:07 | disposition home or self-care (01) ==
LOC: MED 19:20
DX: S61.411A Laceration without foreign body of right hand, initial encounter (principal); R56.9 Unspecified convulsions; Z79.899 Other long term (current) drug therapy; W25.XXXA Contact with sharp glass, initial encounter; Y93.89 Activity, other specified; Y92.89 Other specified places as the place of occurrence of the external cause; Y99.8 Other external cause status
CPT/HCPCS: 12002; 90471; 90715; 99283; J2001; 12001

== ENCOUNTER 2020-07-23 11:33 | Emergency (ER) | payer MEDICAID ==
[~2020-07-23] VITALS: Ht 165.1 cm; Wt 85.7 kg
[2020-07-23 11:34] VITALS: BP 123/75
--- NOTE | 2020-07-23 11:43 | NUR ---
SUTURE REMOVAL ON RIGTH HAND 2ND AND 3RD DIGIT. NO REDNESS,DRAINAGE NOTED. SUTURES IN PLACE X 1 WEEK. PT AOX4 , AFIBRILE , AMBULATORY WITH STEADY GAIT , TENDERNESS ON SITE OF SUTURE , CLEAN AND INTACT SUTURE . NKA HX SEIZURES
--- NOTE | 2020-07-23 11:52 | NUR ---
DR GAMBOA AT BEDSIDE EVALUATING AND REMOVING SUTURE.
[2020-07-23 11:53] VITALS: BP 123/75
== END 2020-07-23 11:55 | disposition home or self-care (01) ==
LOC: MED 11:33
DX: S61.412D Laceration without foreign body of left hand, subsequent encounter (principal); X58.XXXD Exposure to other specified factors, subsequent encounter; R56.9 Unspecified convulsions; Z79.899 Other long term (current) drug therapy
CPT/HCPCS: 99281

== ENCOUNTER 2020-09-12 18:28 | Emergency (ER) | payer MEDICAID, SELFPAY ==
[~2020-09-12] VITALS: Ht 165.1 cm; Wt 81.6 kg
[2020-09-12 18:35] VITALS: BP 127/78
--- NOTE | 2020-09-12 19:32 | NUR ---
20 YO F BIB SELF WITH C/C OF COUGH X4DAYS. PT STATED SHE HAD A FEVER OF 102 4 DAYS AGO AND STATED SHE TOOK NYQUIL WITH LITTLE RELIEF. PT STATED SHE HAS MINOR SOB WITH ACTIVITY, -CHILLS, -N/V/D. LUNG SOUND CLEAR THROUGHOUT. PT ON PULSE OX SATING AT 99% ON RA. BED LOCKED IN LOWEST POSITION, SIDE RAIL X1. HX: SEIZURES RX: ETHOSUXIMIDE LMP: 09/11
[2020-09-12] MEDS ORDERED: predniSONE 20 MG TAB PO ONE (19:35)
[2020-09-12] MEDS ORDERED: ALBUTEROL SULFATE/IPRATROPIU 3 ML SOL IH ONE (19:35)
--- NOTE | 2020-09-12 20:07 | NUR ---
INFLUENZA A&B AND MYLES COLLECTED AND TAKEN TO LAB. PT PROVIDED WITH UA CUP. PT STATES SHE DOES NOT HAVE TO URINATE AT THIS TIME. GIVEN WATER TO ENCOURAGE. RT CALLED FOR BREATHING TX.
--- NOTE | 2020-09-12 20:41 | NUR ---
RT AT BEDSIDE
--- NOTE | 2020-09-12 21:00 | NUR ---
PT REPORTED FEELING SHAKY AND ANXIOUS POST ALBUTEROL TX. HR 127. REPORTED TO RT AND ERMD. RT WENT TO CHECK ON PT. ERMD STATED TO ALLOW PT TO RELAX BEFORE D/C. ORDERS CARRIED OUT.
--- NOTE | 2020-09-12 21:45 | NUR ---
HR LOWERED TO 115. PT STATED ANXIETY SUBSIDED, STILL FEELS SHAKY. REPORTED TO ERMD, STATED IF SHE FEELS GOOD TO GO SHE CAN BE D/C. PT STATED SHE'S READY TO GO HOME.
[2020-09-12 21:59] VITALS: BP 116/80
--- NOTE | 2020-09-12 21:59 | NUR ---
Patient discharged with v/s stable. Written and verbal after care instructions given and explained. Patient alert, oriented and verbalized understanding of instructions. Ambulatory with steady gait. All questions addressed prior to discharge. ID band removed. Patient advised to follow up with PMD. Rx of ALBUTEROL AND PREDNISONE given. Patient educated on indication of medication including possible reaction and side effects. Opportunity to ask questions provided and answered.
--- NOTE | 2020-09-13 13:06 | NUR ---
received a call from mother requesting referral to [facility] in [place] for her daughter to [place] in there, call place to [facility] talked to charge nurse per charge nurse I have to call department of health [phone] and they will do the referral to them, call place to department of health , per Ramonita the public health nurse will call me back, mother kimberly updated of the process.
--- NOTE | 2020-09-13 13:15 | NUR ---
RECEIVED A CALL FROM PUBLIC HEALTH , PER NURSE THE [facility] [place] IS CONNECTED TO [facility] AND THAT I MUST CALL [facility] [phone], WILL UPDATE MOTHER, CALL PLACE TO [facility] LEAVE MESSAGE IN THE ANSWERING MACHINE.
== END 2020-09-12 21:59 | disposition home or self-care (01) ==
LOC: MED 18:28
DX: U07.1 COVID-19 (principal); R06.02 Shortness of breath; R56.9 Unspecified convulsions; Z79.899 Other long term (current) drug therapy
CPT/HCPCS: 71045; 87804; 94640; 99285; J7512; U0003; 99284

== ENCOUNTER 2021-10-17 14:01 | Emergency (ER) | payer BC, MEDICAID, SELFPAY ==
[~2021-10-17] VITALS: Ht 165.1 cm; Wt 93.4 kg
[2021-10-17 14:32] VITALS: BP 114/79
--- NOTE | 2021-10-17 14:35 | NUR ---
21 y/o F BIB self from c/o dry cough, fatigue, sore throat, body aches, chills, fatigue, runny nose since this morning. Denies medications prior to arrival. Denies sick household members. Denies SOB, chest pain. HR 132, SpO2 95% room air. Pt states no difficulty breathing at this time. ERMD made aware of vital signs. PMH/Sx/Meds: seizure, carontin NKDA
--- NOTE | 2021-10-17 14:37 | NUR ---
Pt to remain in tent. ERMD made aware of pt presentation.
[2021-10-17] MEDS ORDERED: ACETAMINOPHEN EXTRA STRENGTH 500 MG TAB PO ONE (14:40)
--- NOTE | 2021-10-17 15:25 | NUR ---
Pt states + relief to body aches, rates pain 6/10 at this time.
[2021-10-17] MEDS ORDERED: NAPR-54 PO (15:31)
[2021-10-17] MEDS ORDERED: ROBAC PO (15:31)
[2021-10-17 15:59] VITALS: BP 112/77
--- NOTE | 2021-10-17 16:03 | NUR ---
Patient discharged with v/s stable. Written and verbal after care instructions ABOUT FEVER, UPPER RESPIRATORY INFECTION given and explained. Patient alert, oriented and verbalized understanding of instructions. Ambulatory with steady gait. All questions addressed prior to discharge. ID band removed. Patient advised to follow up with PMD. Rx of NAPROXEN AND GUAFENESIN given. Patient educated on indication of medication including possible reaction and side effects. Opportunity to ask questions provided and answered.
== END 2021-10-17 16:03 | disposition home or self-care (01) ==
LOC: MED 14:01
DX: J06.9 Acute upper respiratory infection, unspecified (principal); Z20.822 Contact with and (suspected) exposure to COVID-19; Z79.899 Other long term (current) drug therapy
CPT/HCPCS: 87804; 99283

== ENCOUNTER 2022-04-10 12:59 | Emergency (ER) | payer BC, MEDICAID ==
[~2022-04-10] VITALS: Ht 165.1 cm; Wt 92.5 kg
[~2022-04-10 12:59] MED LIST changes: +NAPR-54 PO; +ROBAC PO
[2022-04-10 13:17] VITALS: BP 123/65
[2022-04-10] MEDS ORDERED: ACETAMINOPHEN EXTRA STRENGTH 500 MG TAB PO ONE (14:30)
--- NOTE | 2022-04-10 14:36 | NUR ---
21 y/o female, c/o withdrawals from medication, cardenas, shaking, dizzy that started today. pt states she stopped taking her ethosuximide for seizures because of the . states she tested positive for at home on 03/29/22. denies nausea, vomiting, diarrhea. skin is pink/warm/dry. a&o x4 with even and steady gait. lungs clear bl, heart rate even and regular. pt denies dysuria, hematuria, urinary frequency or retention, or anyone sick in the household with the same symptoms. pt denies any fever, cp, sob, or cough at this time. pt states pain is 5/10 at this time. ermd made aware of pt. pmh: seizures nka med: ethosuximide (no longer taking due to )
[2022-04-10] MEDS ORDERED: METO-485 PO (14:49)
[2022-04-10] MEDS ORDERED: DIPH25TA53 PO (14:49)
[2022-04-10] MEDS ORDERED: ACET-10509 PO (14:49)
[2022-04-10 15:45] VITALS: BP 123/65
--- NOTE | 2022-04-10 15:45 | NUR ---
Patient discharged with v/s stable. Written and verbal after care instructions given and explained. Patient alert, oriented and verbalized understanding of instructions. Ambulatory with steady gait. All questions addressed prior to discharge. ID band removed. Patient advised to follow up with PMD. Rx of tylenol, benadryl, reglan (sent) given. Patient educated on indication of medication including possible reaction and side effects. Opportunity to ask questions provided and answered. work note given
== END 2022-04-10 15:45 | disposition home or self-care (01) ==
LOC: MED 12:59
DX: O26.891 Other specified pregnancy related conditions, first trimester (principal); R51.9 Headache, unspecified; G40.909 Epilepsy, unspecified, not intractable, without status epilepticus; Z3A.01 Less than 8 weeks gestation of pregnancy; Z79.899 Other long term (current) drug therapy
CPT/HCPCS: 81002; 81025; 99283